=== PATIENT | female | born 1955 | race Caucasian/White ===

== ENCOUNTER → 2022-09-07 07:44 | Outpatient (BNVA) | payer BC, SELFPAY | PROVIDERS: PCP Physician Assistant; Visit Provider Student in an Organized Health Care Education/Training Program | DX: Z13.89 Encounter for screening for other disorder (principal) ==

== ENCOUNTER 2022-09-08 14:10 | Outpatient (REF) | payer BC, SELFPAY ==
--- NOTE | ~2022-09-08 | XR_ITS ---
EXAMINATION: XR FOOT, RIGHT XR ANKLE, RIGHT XR KNEE, RIGHT CLINICAL INFORMATION: Rheumatoid arthritis COMPARISON: None TECHNIQUE: 3 views, 4 images of the right foot. 2 views of the right ankle. 4 views of the right knee. FINDINGS: Right foot: Osteopenia. No fracture or dislocation. Appropriate alignment. Joint spaces are maintained. Prominent hypertrophic spurring at the Achilles insertion to the calcaneus. Forefoot soft tissue swelling. No osseous erosion. Right ankle: No fracture or dislocation. The ankle mortise is congruent. Diffuse soft tissue swelling. No ankle joint effusion. Right knee: No fracture or subluxation. Severe medial compartment joint space narrowing with hmov-zm-ewhu appearance. Prominent tricompartmental marginal osteophytes. No joint effusion. XR/XR ankle RT min 3V IMPRESSION: No acute abnormality of the right foot, right ankle, or right knee. Severe tricompartmental degenerative changes of the right knee. No osseous erosions.
--- NOTE | ~2022-09-08 | XR_ITS ---
EXAMINATION: XR SHOULDER, LEFT XR WRIST, LEFT XR SHOULDER, RIGHT XR WRIST, RIGHT CLINICAL INFORMATION: Rheumatoid arthritis. COMPARISON: None TECHNIQUE: 4 views of the left shoulder. 3 views of the left wrist. 4 views of the right shoulder. 3 views of the right wrist. FINDINGS: Left shoulder: Osteopenia. No fracture or dislocation. The glenohumeral joint is well aligned. Narrowing of the subacromial space with subacromial spurring. Mild hypertrophic degenerative change of the acromioclavicular joint. The visualized lung is clear. The visualized ribs are intact. Left wrist: Osteopenia. No fracture or dislocation. The carpal rows are well aligned. Moderate degenerative change of the first carpometacarpal joint with osteophyte formation. No osseous erosions. Soft tissues are unremarkable. Right shoulder: Osteopenia. No fracture or dislocation. The glenohumeral joint is well aligned. Narrowing of the subacromial space with subacromial spurring. Mild osteophyte formation of the glenohumeral joint. Moderate hypertrophic degenerative change at the acromioclavicular joint. The visualized ribs are intact. The visualized lungs are clear. Right wrist: Osteopenia. No fracture or dislocation. The carpal rows are well aligned. Mild degenerative change at the first carpometacarpal joint with osteophyte formation. No osseous erosions. Soft tissues are unremarkable. XR/XR wrist LT min 3V IMPRESSION: Osteopenia. Degenerative changes of both wrists. No osseous erosions. No acute abnormality. Narrowing of the subacromial space at both shoulders with subacromial spurring. This can be seen with rotator cuff disease. Associated degenerative changes.
--- NOTE | ~2022-09-08 | XR_ITS ---
EXAMINATION: XR FOOT, RIGHT XR ANKLE, RIGHT XR KNEE, RIGHT CLINICAL INFORMATION: Rheumatoid arthritis COMPARISON: None TECHNIQUE: 3 views, 4 images of the right foot. 2 views of the right ankle. 4 views of the right knee. FINDINGS: Right foot: Osteopenia. No fracture or dislocation. Appropriate alignment. Joint spaces are maintained. Prominent hypertrophic spurring at the Achilles insertion to the calcaneus. Forefoot soft tissue swelling. No osseous erosion. Right ankle: No fracture or dislocation. The ankle mortise is congruent. Diffuse soft tissue swelling. No ankle joint effusion. Right knee: No fracture or subluxation. Severe medial compartment joint space narrowing with nmxr-pm-ozbs appearance. Prominent tricompartmental marginal osteophytes. No joint effusion. XR/XR knee RT 3V IMPRESSION: No acute abnormality of the right foot, right ankle, or right knee. Severe tricompartmental degenerative changes of the right knee. No osseous erosions.
--- NOTE | ~2022-09-08 | XR_ITS ---
EXAMINATION: XR FOOT, LEFT XR ANKLE, LEFT XR KNEE, LEFT CLINICAL INFORMATION: Rheumatoid arthritis. COMPARISON: None TECHNIQUE: 3 views of the left foot. 2 views of the left ankle. 4 views of the left knee. FINDINGS: Left foot: Osteopenia. No fracture or dislocation. Appropriate alignment. Joint spaces are maintained. No osseous erosions. Mild hypertrophic spurring of the Achilles insertion to the calcaneus. Mild soft tissue swelling at the forefoot. Left ankle: No fracture or dislocation. The ankle mortise is congruent. Diffuse soft tissue swelling. No ankle joint effusion. Left knee: No fracture or subluxation. Severe medial compartment joint space narrowing with gukj-ey-ibtf appearance. There is also narrowing at the lateral and patellofemoral compartments. Prominent tricompartmental marginal osteophytes. No joint effusion. XR/XR foot LT min 3V IMPRESSION: 1. No acute abnormality of the left foot or ankle. No osseous erosions. Soft tissue swelling. 2. Advanced tricompartmental degenerative changes of the left knee.
--- NOTE | ~2022-09-08 | XR_ITS ---
EXAMINATION: XR FOOT, LEFT XR ANKLE, LEFT XR KNEE, LEFT CLINICAL INFORMATION: Rheumatoid arthritis. COMPARISON: None TECHNIQUE: 3 views of the left foot. 2 views of the left ankle. 4 views of the left knee. FINDINGS: Left foot: Osteopenia. No fracture or dislocation. Appropriate alignment. Joint spaces are maintained. No osseous erosions. Mild hypertrophic spurring of the Achilles insertion to the calcaneus. Mild soft tissue swelling at the forefoot. Left ankle: No fracture or dislocation. The ankle mortise is congruent. Diffuse soft tissue swelling. No ankle joint effusion. Left knee: No fracture or subluxation. Severe medial compartment joint space narrowing with jmoq-pd-jjop appearance. There is also narrowing at the lateral and patellofemoral compartments. Prominent tricompartmental marginal osteophytes. No joint effusion. XR/XR ankle LT min 3V IMPRESSION: 1. No acute abnormality of the left foot or ankle. No osseous erosions. Soft tissue swelling. 2. Advanced tricompartmental degenerative changes of the left knee.
--- NOTE | ~2022-09-08 | XR_ITS ---
EXAMINATION: XR SHOULDER, LEFT XR WRIST, LEFT XR SHOULDER, RIGHT XR WRIST, RIGHT CLINICAL INFORMATION: Rheumatoid arthritis. COMPARISON: None TECHNIQUE: 4 views of the left shoulder. 3 views of the left wrist. 4 views of the right shoulder. 3 views of the right wrist. FINDINGS: Left shoulder: Osteopenia. No fracture or dislocation. The glenohumeral joint is well aligned. Narrowing of the subacromial space with subacromial spurring. Mild hypertrophic degenerative change of the acromioclavicular joint. The visualized lung is clear. The visualized ribs are intact. Left wrist: Osteopenia. No fracture or dislocation. The carpal rows are well aligned. Moderate degenerative change of the first carpometacarpal joint with osteophyte formation. No osseous erosions. Soft tissues are unremarkable. Right shoulder: Osteopenia. No fracture or dislocation. The glenohumeral joint is well aligned. Narrowing of the subacromial space with subacromial spurring. Mild osteophyte formation of the glenohumeral joint. Moderate hypertrophic degenerative change at the acromioclavicular joint. The visualized ribs are intact. The visualized lungs are clear. Right wrist: Osteopenia. No fracture or dislocation. The carpal rows are well aligned. Mild degenerative change at the first carpometacarpal joint with osteophyte formation. No osseous erosions. Soft tissues are unremarkable. XR/XR shoulder LT min 2V IMPRESSION: Osteopenia. Degenerative changes of both wrists. No osseous erosions. No acute abnormality. Narrowing of the subacromial space at both shoulders with subacromial spurring. This can be seen with rotator cuff disease. Associated degenerative changes.
--- NOTE | ~2022-09-08 | XR_ITS ---
EXAMINATION: XR SHOULDER, LEFT XR WRIST, LEFT XR SHOULDER, RIGHT XR WRIST, RIGHT CLINICAL INFORMATION: Rheumatoid arthritis. COMPARISON: None TECHNIQUE: 4 views of the left shoulder. 3 views of the left wrist. 4 views of the right shoulder. 3 views of the right wrist. FINDINGS: Left shoulder: Osteopenia. No fracture or dislocation. The glenohumeral joint is well aligned. Narrowing of the subacromial space with subacromial spurring. Mild hypertrophic degenerative change of the acromioclavicular joint. The visualized lung is clear. The visualized ribs are intact. Left wrist: Osteopenia. No fracture or dislocation. The carpal rows are well aligned. Moderate degenerative change of the first carpometacarpal joint with osteophyte formation. No osseous erosions. Soft tissues are unremarkable. Right shoulder: Osteopenia. No fracture or dislocation. The glenohumeral joint is well aligned. Narrowing of the subacromial space with subacromial spurring. Mild osteophyte formation of the glenohumeral joint. Moderate hypertrophic degenerative change at the acromioclavicular joint. The visualized ribs are intact. The visualized lungs are clear. Right wrist: Osteopenia. No fracture or dislocation. The carpal rows are well aligned. Mild degenerative change at the first carpometacarpal joint with osteophyte formation. No osseous erosions. Soft tissues are unremarkable. XR/XR wrist RT min 3V IMPRESSION: Osteopenia. Degenerative changes of both wrists. No osseous erosions. No acute abnormality. Narrowing of the subacromial space at both shoulders with subacromial spurring. This can be seen with rotator cuff disease. Associated degenerative changes.
--- NOTE | ~2022-09-08 | XR_ITS ---
EXAMINATION: XR FOOT, LEFT XR ANKLE, LEFT XR KNEE, LEFT CLINICAL INFORMATION: Rheumatoid arthritis. COMPARISON: None TECHNIQUE: 3 views of the left foot. 2 views of the left ankle. 4 views of the left knee. FINDINGS: Left foot: Osteopenia. No fracture or dislocation. Appropriate alignment. Joint spaces are maintained. No osseous erosions. Mild hypertrophic spurring of the Achilles insertion to the calcaneus. Mild soft tissue swelling at the forefoot. Left ankle: No fracture or dislocation. The ankle mortise is congruent. Diffuse soft tissue swelling. No ankle joint effusion. Left knee: No fracture or subluxation. Severe medial compartment joint space narrowing with xfll-uc-haby appearance. There is also narrowing at the lateral and patellofemoral compartments. Prominent tricompartmental marginal osteophytes. No joint effusion. XR/XR knee LT 3V IMPRESSION: 1. No acute abnormality of the left foot or ankle. No osseous erosions. Soft tissue swelling. 2. Advanced tricompartmental degenerative changes of the left knee.
--- NOTE | ~2022-09-08 | XR_ITS ---
EXAMINATION: XR FOOT, RIGHT XR ANKLE, RIGHT XR KNEE, RIGHT CLINICAL INFORMATION: Rheumatoid arthritis COMPARISON: None TECHNIQUE: 3 views, 4 images of the right foot. 2 views of the right ankle. 4 views of the right knee. FINDINGS: Right foot: Osteopenia. No fracture or dislocation. Appropriate alignment. Joint spaces are maintained. Prominent hypertrophic spurring at the Achilles insertion to the calcaneus. Forefoot soft tissue swelling. No osseous erosion. Right ankle: No fracture or dislocation. The ankle mortise is congruent. Diffuse soft tissue swelling. No ankle joint effusion. Right knee: No fracture or subluxation. Severe medial compartment joint space narrowing with hlso-sy-wmct appearance. Prominent tricompartmental marginal osteophytes. No joint effusion. XR/XR foot RT min 3V IMPRESSION: No acute abnormality of the right foot, right ankle, or right knee. Severe tricompartmental degenerative changes of the right knee. No osseous erosions.
--- NOTE | ~2022-09-08 | XR_ITS ---
EXAMINATION: XR SHOULDER, LEFT XR WRIST, LEFT XR SHOULDER, RIGHT XR WRIST, RIGHT CLINICAL INFORMATION: Rheumatoid arthritis. COMPARISON: None TECHNIQUE: 4 views of the left shoulder. 3 views of the left wrist. 4 views of the right shoulder. 3 views of the right wrist. FINDINGS: Left shoulder: Osteopenia. No fracture or dislocation. The glenohumeral joint is well aligned. Narrowing of the subacromial space with subacromial spurring. Mild hypertrophic degenerative change of the acromioclavicular joint. The visualized lung is clear. The visualized ribs are intact. Left wrist: Osteopenia. No fracture or dislocation. The carpal rows are well aligned. Moderate degenerative change of the first carpometacarpal joint with osteophyte formation. No osseous erosions. Soft tissues are unremarkable. Right shoulder: Osteopenia. No fracture or dislocation. The glenohumeral joint is well aligned. Narrowing of the subacromial space with subacromial spurring. Mild osteophyte formation of the glenohumeral joint. Moderate hypertrophic degenerative change at the acromioclavicular joint. The visualized ribs are intact. The visualized lungs are clear. Right wrist: Osteopenia. No fracture or dislocation. The carpal rows are well aligned. Mild degenerative change at the first carpometacarpal joint with osteophyte formation. No osseous erosions. Soft tissues are unremarkable. XR/XR shoulder RT min 2V IMPRESSION: Osteopenia. Degenerative changes of both wrists. No osseous erosions. No acute abnormality. Narrowing of the subacromial space at both shoulders with subacromial spurring. This can be seen with rotator cuff disease. Associated degenerative changes.
== END 2022-09-08 14:11 | disposition home or self-care (01) ==
LOC: HO.XRAY 14:10
PROVIDERS: PCP Physician Assistant; Visit Provider Student in an Organized Health Care Education/Training Program
DX: M06.9 Rheumatoid arthritis, unspecified (principal)
CPT/HCPCS: 73030; 73110; 73562; 73610; 73630

== ENCOUNTER → 2022-12-06 10:33 | Outpatient (BNVA) | payer BC, SELFPAY | PROVIDERS: PCP Physician Assistant; Visit Provider Student in an Organized Health Care Education/Training Program | DX: M06.09 Rheumatoid arthritis without rheumatoid factor, multiple sites (principal); M17.0 Bilateral primary osteoarthritis of knee; G20 Parkinson's disease; M81.0 Age-related osteoporosis without current pathological fracture; Z79.899 Other long term (current) drug therapy | CPT/HCPCS: 20610 ==

== ENCOUNTER → 2023-03-16 13:30 | Outpatient (BNV) | payer MEDICARE, SELFPAY | PROVIDERS: PCP Physician Assistant; Visit Provider Radiology Diagnostic Radiology | DX: M81.0 Age-related osteoporosis without current pathological fracture (principal) | CPT/HCPCS: 77080 ==

== ENCOUNTER 2023-03-16 13:34 | Outpatient (REF) | payer MEDICARE, SELFPAY ==
--- NOTE | ~2023-03-16 | MM_ITS ---
EXAMINATION: BONE DENSITOMETRY CLINICAL INDICATION: Age-related osteoporosis without current pathological fracture. COMPARISON: This is the patient's baseline examination. TECHNIQUE: Using a IZEA DXA System (software version: 13.1) manufactured by [employer], dual-energy x-ray absorptiometry was performed of the lumbar spine and left hip. The images are of good technical quality. Summary results are attached. FINDINGS: AP SPINE L1-L4: BMD 1.072 g/cm2, Z-score 0.2, T-score -0.9, normal. LEFT FEMUR, NECK: BMD 0.655 g/cm2, Z-score -1.5, T-score -2.8, osteoporosis. LEFT FEMUR, TOTAL: BMD 0.635 g/cm2, Z-score -2.0, T-score -3.0, osteoporosis. IDENTIFIED RISK FACTORS: History of adult fracture. Rheumatoid arthritis. Osteoporosis. Parental hip fracture. Menopause. HISTORY OF FRACTURE: Elbow. MEDICATIONS: Calcium supplement and/or multivitamin. Vitamin D. MM/XR DEXA axial skeleton IMPRESSION: 1. DIAGNOSIS: Osteoporosis based on the lowest T-score value of -3.0 in the total femur applying World Health Organization criteria. 2. 10-YEAR FRACTURE RISK PREDICTION, FRAX: According to the guidelines, FRAX calculation should only be performed on patients in the osteopenia bone density category.?Therefore, FRAX was not performed on this patient.? 3. Treatment Recommendations: NOF guidelines recommend consideration for treatment in postmenopausal women and men age 50 and older presenting with the following: -A hip or vertebral (clinical or morphometric) fracture. -T-score less than or equal to -2.5 at the femoral neck or spine after appropriate evaluation to exclude secondary causes. -Low bone mass at the hip or spine and a 10-year fracture probability by FRAX of greater than or equal to 3% for hip fracture or greater than or equal to 20% for major osteoporotic fracture based on the [place] adapted WHO algorithm. 4. Other Recommendations: All treatment decisions require clinical judgment and consideration of individual patient factors, including patient preferences, comorbidities, previous drug use, risk factors not captured in the FRAX model (e.g. frailty, falls, vitamin D deficiency, increased bone turnover, interval significant decline in bone density) and possible under or overestimation of fracture risk by FRAX. Additional medical evaluation for secondary cause of low bone mineral density may be appropriate. FUTURE SCAN RECOMMENDATION: People with diagnosed cases of osteoporosis or at high risk for fracture should have regular bone mineral density tests. For patients eligible for Medicare, routine testing is allowed once every 2 years. The testing frequency can be increased to one year for patients who have rapidly progressing disease, those who are receiving or discontinuing medical therapy to restore bone mass, or have additional risk factors.
== END 2023-03-16 13:35 | disposition home or self-care (01) ==
LOC: HO.MAMMO 13:34
PROVIDERS: PCP Physician Assistant; Visit Provider Student in an Organized Health Care Education/Training Program
DX: Z13.820 Encounter for screening for osteoporosis (principal); Z78.0 Asymptomatic menopausal state; M81.0 Age-related osteoporosis without current pathological fracture
CPT/HCPCS: 77080

== ENCOUNTER 2023-04-07 14:54 | Outpatient (AMB) | payer MEDICARE, SELFPAY ==
--- NOTE | 2023-04-07 14:59 | A.OFFVIS_ITS ---
Intake Vital Signs 04/07/23 15:01 Height 5 ft 7 in Weight 182 lb 15.739 oz BMI 28.7 BP 126/74 Blood Pressure Location Rt brachial Position Sitting Pulse 101 H Pulse Source Pulse Oximeter Temp 97.3 F Temp Source Skin Pulse Oximetry (%) 96 Oxygen Delivery Method Room Air Intake Visit Reasons: RA Intake Note: Here for RA follow up. c/o tiredness, cranky', waleksa knee pain (L>R). Head injury Monday night. Did not seek medical attention. Backend Tester Required: No Accompanied by: Self / Same As Patient Allergies No Known Allergies Allergy (Unverified 04/07/23 15:05) Medication List - Last Reconciled 04/07/23 by Carlos Castrejon MD atorvastatin 40 mg PO DAILY carbamazepine 200 mg PO BID carbidopa-levodopa 25-100 mg 1 tab PO QID duloxetine 60 mg PO DAILY folic acid 1 mg PO DAILY hydroxychloroquine 200 mg PO BID lisinopril 10 mg PO DAILY methotrexate sodium 22.5 mg PO QWEEK omeprazole 20 mg PO DAILY oxybutynin chloride 5 mg PO BID HPI HPI Comments History of Present Illness Details 67-year-old female with seronegative RA (borderline positive RF) returns for follow-up. On methotrexate 22.5 mg weekly and hydroxychloroquine 200 mg Twice daily. Patient states that she believes the hydroxychloroquine is making her a little irritable. States the knee injections done last visit were quite helpful, however over the last 3-4 weeks she has been having recurrent pain in her left knee. She is requesting left knee steroid injection today. Initial history: This is a 67-year-old female past medical history of rheumatoid arthritis, parkinsonism presents for evaluation of rheumatoid arthritis. her previous co director left the practice. Patient saw Dr. Stevens for about 1-2 years but had the majority of her rheumatology care in [place]. I do not yet have records from her co director in [place] Patient stated she was diagnosed with this condition about 20 years ago. She had been taking multiple medications including Tylenol and Aleve. She was started on methotrexate about 10 years ago and the dose was increased to 9 tabs from [address] Stevens with unclear benefit per patient. Humira was suggested by Dr. Stevens but patient is worried about the development of cancer as her sister had lymphoma. Today patient is complaining of pain in both shoulders, mostly right shoulder and chronic bilateral knee pain. She stated that since Nika when she was wrapping gifts she started having right shoulder pain. [facility] Medical History Anemia Anxiety and depression Congenital valgus deformity of foot COVID History of trigeminal neuralgia Hypertension Mixed hyperlipidemia Osteoporosis Overweight Parkinsonism Rheumatoid arthritis Family History Sister Rheumatoid arthritis Lymphoma Father Suicide Social History Household Members: Spouse Housing: Apartment Alcohol intake: former Patient Tobacco Use Status: Never used Tobacco e-Cigarette/Vaping Use: Never Used service: No Current occupational status: retired Current occupation: former pharmacy intake technician Review of Systems [facility] Reports arthralgias, Reports limited range of motion and Reports stiffness Physical Exam Vital Signs: Last Vital Signs Temp 97.3 F 04/07/23 15:01 Pulse 101 H 04/07/23 15:01 BP 126/74 04/07/23 15:01 Pulse Ox 96 04/07/23 15:01 Oxygen Delivery Method Room Air 04/07/23 15:01 BMI result Body Mass Index 28.7 Const General: cooperative, healthy appearing and comfortable Nutritional Appearance: overweight Limitations: no limitations HEENT Head: Yes normocephalic and Yes atraumatic Resp Effort & Inspection: normal respiratory effort and able to speak in complete sentences Extrem Other: Mild right wrist swelling and tenderness No left wrist swelling or tenderness No elbow pain with full flexion and extension today P Few swollen and tender MCPs bilaterally Few PIPs are tender without swelling Left knee warmth and pain with mild flexion Office Procedures Joint Injection/Drain Joint Injection/Drain Primary Site: left knee Prep: site was prepped using sterile technique Injected: 40 mg of, Kenalog and other (2 mL of 1% lidocaine) Approach Used: medial parapatellar Procedure: The patient tolerated the procedure well Coding Details: With the patient's consent the left knee was prepped with ChloraPrep and alcohol. The skin was anesthetized with 2 cc of 1% lidocaine. The knee was then injected with 40 mg of triamcinolone and 2 cc of I % lidocaine. The patient tolerated the procedure with no immediate adverse effects. 59117 - Large joint Procedure code (CPT) selection complete Assessment & Plan Assessment & Plan (1) Rheumatoid arthritis: Comment: Seroneg dx around 2013 in [place] on MTX 15 mg since 2013, advanced to 22.5 mg since 2020 HCQ added 09/29 Code(s): M06.9 - Rheumatoid arthritis, unspecified Qualifiers: Rheumatoid arthritis location: multiple sites Rheumatoid factor presence: without rheumatoid factor Qualified Code(s): M06.09 - Rheumatoid arthritis without rheumatoid factor, multiple sites Plan: This is a 67-year-old female with seronegative RA who returns for follow-up. Her RA is fairly well controlled on methotrexate 22.5 mg once weekly. And hydroxychloroquine 400 mg daily Biologics were refused by patient as patient's sister has had RA and had lymphoma on Humira. Continue methotrexate 22.5 mg once weekly on hydroxychloroquine 200 mg Twice daily Labs before next visit in 3 months (2) Bilateral primary osteoarthritis of knee: Code(s): M17.0 - Bilateral primary osteoarthritis of knee Plan: Bilateral knees were injected 12/27 . Injections were helpful Patient stated that she has been having left knee pain over the last 3-4 weeks. With patient's consent left knee was injected with Kenalog today. Can repeat injections every 3-4 months (3) Osteoporosis: Code(s): M81.0 - Age-related osteoporosis without current pathological fracture Qualifiers: Osteoporosis type: age-related Presence of current pathological fracture: without current pathological fracture Qualified Code(s): M81.0 - Age- related osteoporosis without current pathological fracture Plan: DEXA 03/2023 shows osteoporosis. Will discuss antiresorptive therapy next visit Plan I spent 32 minutes reviewing patient's chart, evaluating patient, ordering diagnostic workup, counseling patient and documenting in the chart Orders: Orders 2 Complete Blood Count Auto Diff 3 Months M06.9 - Rheumatoid arthritis, unspecified Comprehensive Met. Panel 3 Months M06.9 - Rheumatoid arthritis, unspecified Erythrocyte Sedimentation Rate 3 Months M06.9 - Rheumatoid arthritis, unspecified C Reactive Protein 3 Months M06.9 - Rheumatoid arthritis, unspecified AMB Joint Injection/Aspiration Today M17.0 - Bilateral primary osteoarthritis of knee Medications: New folic acid 2 mg (2 x 1 mg) PO DAILY 180 tabs 1RF Coding Level of Care Code Est Pt Level 4 (23187) Diagnoses Rheumatoid arthritis M06.09 Rheumatoid arthritis location: multiple sites Rheumatoid factor presence: without rheumatoid factor Bilateral primary osteoarthritis of knee M17.0 Osteoporosis M81.0 Osteoporosis type: age-related Presence of current pathological fracture: without current pathological fracture CPT Codes Coding - 51381 Large joint: 24133 - Large joint ([id number])
[2023-04-07 15:01] VITALS: BP 126/74; PULSE 101; TEMP 36.3; O2SAT 96; BMI 28.7
== END 2023-04-07 15:59 | disposition home or self-care (01) ==
LOC: HO.RHE 14:54
PROVIDERS: PCP Physician Assistant; Visit Provider Student in an Organized Health Care Education/Training Program
DX: M06.09 Rheumatoid arthritis without rheumatoid factor, multiple sites (principal); M17.0 Bilateral primary osteoarthritis of knee; M81.0 Age-related osteoporosis without current pathological fracture
CPT/HCPCS: 20610; 99214

== ENCOUNTER → 2023-04-07 14:54 | Outpatient (BNVA) | payer MEDICARE, SELFPAY | PROVIDERS: PCP Physician Assistant; Visit Provider Student in an Organized Health Care Education/Training Program | DX: M06.09 Rheumatoid arthritis without rheumatoid factor, multiple sites (principal); M17.0 Bilateral primary osteoarthritis of knee; M81.0 Age-related osteoporosis without current pathological fracture | CPT/HCPCS: 20610; 99212 ==